=== PATIENT | female | born 1995 | race Hispanic/Latino ===

== ENCOUNTER 2019-07-27 11:57 | Emergency (ER) | payer MEDICARE ==
[~2019-07-27] VITALS: Ht 160 cm; Wt 97.5 kg
[2019-07-27] MEDS ORDERED: HYDROCODONE/APAP 5MG-325MG TAB PO ONE (12:15)
--- NOTE | 2019-07-27 12:33 | Diagnostic Imaging Report ---
ANKLE 3 + VIEWS RIGHT - 3 views HISTORY: Pain COMPARISON: None available. FINDINGS: Bones: No acute displaced fracture. Osseous alignment is within normal limits. Joints: The joint spaces are well-maintained. Soft tissues: Lateral malleolar soft tissue swelling. IMPRESSION: No acute fracture or dislocation of the right ankle. Lateral malleolar soft tissue swelling. Signed by: Dr. Michael Noonan MD on 07/27/2019 12:30 PM
[2019-07-27] MEDS ORDERED: TYLENOL WITH C1 EACH PO (12:57)
== END 2019-07-27 13:54 | disposition home or self-care (01) ==
LOC: ER 11:57
DX: S93.491A Sprain of other ligament of right ankle, initial encounter (principal); X50.1XXA Overexertion from prolonged static or awkward postures, initial encounter; Y92.008 Other place in unspecified non-institutional (private) residence as the place of occurrence of the external cause
CPT/HCPCS: 99284